=== PATIENT | female | born 1990 | race Caucasian/White ===

== ENCOUNTER 2024-02-17 06:06 | Day surgery (SDC) | payer SELFPAY ==
[2024-02-17] VITALS (13 sets, daily range): BP systolic 91–156; BP diastolic 51–93; BMI 32.5
[2024-02-17] MEDS: TYLENOL 1000 MG PO (06:22)
[2024-02-17] MEDS: NORMOSOL-R 1000 IV (06:32)
--- NOTE | 2024-02-17 09:00 | W.SUR.PREOP ---
Pre-Operative Surgical Note
-
I have examined this patient prior to the performance of the scheduled procedure.
The patient's condition is unchanged from the time of the current History and
Physical and the patient is able to undergo the scheduled procedure.
--- NOTE | 2024-02-17 09:00 | W.IMMPOSTOP ---
Surgical Immed Post Op Note
-
Primary Surgeon: Yossi Doss MD
Assisting Surgeon: None
[employer] Consultant: ROSINA Patel
Pre-op Diagnosis: Left lower quadrant abdominal wall mass
Post-op Diagnosis: Same
Procedure Performed: Excision of the left lower quadrant abdominal mass
Anesthesia Type: General
Specimen / Cultures: Left lower quadrant abdominal mass
Estimated Blood Loss: 7 cc
Complications: None
Operative Findings: 5 x 5 x 4 cm abdominal mass invading the external oblique and likely underlying muscle layers of the left semilunar line. Incompletely excised. External oblique reapproximated using 0 PDS. Skin and subcutaneous tissue were
closed in layers with 3-0 Vicryl followed by Dermabond.
--- NOTE | 2024-02-19 17:16 | OR.RPT ---
Operative Report
Operative Report
Patient Name: Dalia Baer
: 1990
Date of Operation: 02/17/2024
Preoperative Diagnosis: Left lower quadrant abdominal wall mass
Postoperative Diagnosis: Same
Procedure(s):
Excision of left lower quadrant abdominal wall mass
Surgeon(s):
Dr. Doss
Senior Counsel(s):
ROSINA Patel
Anesthesia: General
Estimated Blood Loss: 7 cc
Urine Output: None
Drains/Lines/Implants: None
Specimens:
1. Small Bowel
HPI/Surgical Indications:
This is a 33-year-old female with a history of 4 prior C-sections who presents with a painful left lower quadrant mass at the lateral aspect of her scar. The mass has grown over time and become increasingly painful. A CT scan demonstrated
the mass involved the external obliques and anterior rectus sheath fascia and her main concern was an endometrioma. Risks/Benefits/Alternatives were discussed at length, and the patient agreed to proceed with surgery in a staged fashion, first a
debulking to removal we could without involving the muscle in the abdominal wall fascia complexes disruption here near the semilunar line could lead to a fairly difficult hernia to repair and morbidity.
Operative Findings: 5 x 5 x 4 cm abdominal mass invading the external oblique and likely underlying muscle layers of the left semilunar line. Incompletely excised. External oblique reapproximated using 0 PDS. Skin and subcutaneous tissue were
closed in layers with 3-0 Vicryl followed by Dermabond.
Procedure Description:
The patient was brought to the Operating Room and placed in the supine position with the arms out. IV antibiotics were infused and Venodyne stockings placed. Following uneventful induction of general endotracheal anesthesia, the abdomen was
prepped and draped in the usual sterile fashion. Incision was made over the lateral aspect of her previous section scar and extended laterally. Firm mass was encountered this was circumferentially dissected off of the surrounding healthy
tissue up to the level of the external oblique fascia laterally and anterior rectus sheath medially. It was readily apparent that this mass involved and was deep to fascia and that incisions here would likely result in significant injury to the
semilunar line thus the mass was cut parallel to the external oblique. Medially the mass did not appear to be so deep and so part of the anterior rectus sheath was removed with some exposure of the underlying rectus muscle. The specimen was passed
off the field. The anterior rectus sheath was closed with a running 0 PDS suture. The wound was irrigated and hemostasis was achieved. The wound was then closed in layers with 2-0 Vicryl and the skin was then closed with 3-0 Vicryl followed by a
running 4-0 Monocryl subcuticular stitch. The incision was then dressed with Dermabond. Counts were correct x 2. Overall, the patient tolerated the procedure well and was taken to the Recovery Room postoperatively in stable condition.
I was the attending physician and performed the procedure with the assistance of the PA student above. I was present for all portions of the case
Yossi Doss MD
== END 2024-02-17 10:16 | disposition home or self-care (01) ==
LOC: SDS 06:06
PROVIDERS: ATTENDING PHYSICIAN Surgery
DX: N80.C11 Endometriosis of the anterior abdominal wall, fascia and muscular layers (principal); R19.04 Left lower quadrant abdominal swelling, mass and lump
CPT/HCPCS: 22903; 88304